=== PATIENT | female | born 1960 | race Caucasian/White ===

== ENCOUNTER → 2019-01-24 | Outpatient (CLI) | payer OTHER | LOC: M.RAD 15:37 | DX: Z12.31 Encounter for screening mammogram for malignant neoplasm of breast (principal) ==

== ENCOUNTER → 2019-02-01 | Outpatient (CLI) | payer OTHER | LOC: M.ULTRA 14:47 | DX: N63.20 Unspecified lump in the left breast, unspecified quadrant (principal) ==